=== PATIENT | female | born 1940 | race Caucasian/White ===

== ENCOUNTER → 2017-05-20 | Outpatient (CLI) | payer OTHER, MEDICARE | LOC: FIMAGING 14:38 | DX: Z12.31 Encounter for screening mammogram for malignant neoplasm of breast (principal) ==

== ENCOUNTER → 2018-05-31 | Outpatient (CLI) | payer OTHER, MEDICARE | LOC: BRMIMAGING 13:48 | DX: Z12.31 Encounter for screening mammogram for malignant neoplasm of breast (principal) ==